=== PATIENT | male | born 1990 | race Caucasian/White ===

== ENCOUNTER 2020-02-23 19:05 | Emergency (ER) | payer MEDICAID ==
[~2020-02-23] VITALS: Ht 177.8 cm; Wt 70.0 kg
[2020-02-23] MEDS ORDERED: MORPHINE SULFATE 4 MG/ML CPJ (NOT FOR IM USE) IV STA (19:17)
[2020-02-23] MEDS ORDERED: SODIUM CHLORIDE 0.9% 1,000 ML IV ONE (19:17)
[2020-02-23] MEDS ORDERED: ONDANSETRON HCL 4MG/2ML INJ IV STA (19:17)
[2020-02-23] MEDS ORDERED: LIDOCAINE 1%/EPI 1:100,000 10 ML VIAL IJ ONE (19:30)
[2020-02-23] MEDS ORDERED: TETANUS, DIPHTHERIA, PERTUSSIS VAC/PF 0.5ML (>7YR OLD) IM ONE (19:30)
[2020-02-23] MEDS ORDERED: KETOROLAC 15MG/ML VIAL IV ONE (19:30)
[2020-02-23] MEDS ORDERED: LIDOCAINE HCL/EPINEPHRINE 1%-EPI 1:100,000 20 ML VIAL INFIL SCH (19:31)
[2020-02-23] MEDS ORDERED: ETOMIDATE 2MG/ML 10ML VIAL IV ONE (19:45)
[2020-02-23] MEDS ORDERED: MORPHINE SULFATE 4 MG/ML CPJ (NOT FOR IM USE) IV ONE (19:45)
[2020-02-23 20:02] LABS: BASOPHILS % 0.6 % (0.0-2.0); EOSINOPHILS % 3.3 % (0.0-5.0); HEMATOCRIT. 48.9 % (42.0-52.0); HEMOGLOBIN. 16.7 g/dL (14.0-18.0); LYMPHOCYTES % 31.5 % (20.0-50.0); MEAN CORPUSCULAR HEMOGLOBIN 29.3 pg (28.0-32.0); MEAN CORPUSCULAR VOLUME 85.7 fL (80.0-94.0); MEAN PLATELET VOLUME 9.1 fl (7.4-10.4); NEUTROPHILS % 54.6 % (40.0-76.0); PLATELET 322 x1000/uL (130-400); RED BLOOD CELL COUNT 5.71 mill/uL (4.7-6.1); RED CELL DISTRIBUTION WIDTH 13.7 % (11.6-14.6)
[2020-02-23 20:08] LABS: CHLORIDE 104 mEq/L (98-107)
[2020-02-23 20:13] LABS: ETHANOL BLOOD < 10 mg/dL
[2020-02-23 22:55] VITALS: BP 142/88
== END 2020-02-23 23:03 | disposition home or self-care (01) ==
LOC: ER 19:05
DX: S01.01XA Laceration without foreign body of scalp, initial encounter (principal); S43.015A Anterior dislocation of left humerus, initial encounter; S21.151A Open bite of right front wall of thorax without penetration into thoracic cavity, initial encounter; Y04.0XXA Assault by unarmed brawl or fight, initial encounter; Y04.1XXA Assault by human bite, initial encounter; Y93.89 Activity, other specified; Y92.018 Other place in single-family (private) house as the place of occurrence of the external cause
CPT/HCPCS: 12013; 23650; 36415; 70450; 73030; 80053; 80320; 85025; 90471; 90715; 96374; 96375; 99152; 99285; J1885; J2270; J2405; J3490; J7030; G0480

== ENCOUNTER 2020-03-01 13:28 | Emergency (ER) | payer MEDICAID ==
[~2020-03-01] VITALS: Ht 172.7 cm; Wt 75.0 kg
[2020-03-01 13:36] VITALS: BP 134/64
== END 2020-03-01 15:24 | disposition home or self-care (01) ==
LOC: ER 13:28
DX: Z48.02 Encounter for removal of sutures (principal); I10 Essential (primary) hypertension
CPT/HCPCS: 99281